=== PATIENT | female | born 1970 | race Caucasian/White ===

== ENCOUNTER 2022-12-23 06:01 | Day surgery (SDC) | payer BC ==
[2022-12-19 10:46] VITALS: BMI 24.3
[2022-12-23] MEDS ORDERED: Sodium Chloride 0.9% 100 ML ONE (06:46)
[2022-12-23] MEDS ORDERED: CEFAZOLIN 2 GM VIAL ONE (06:46)
[2022-12-23] MEDS ORDERED: Heparin 5,000 UNITS/ML VIAL ONE (06:46)
[2022-12-23] MEDS ORDERED: Midazolam HCl 2 mg/2 ml Vial ONE (06:46)
[2022-12-23] MEDS ORDERED: Bupivacaine/Epinephrine 0.25% 30 ML VIAL ONE (06:58)
[2022-12-23] MEDS ORDERED: Vancomycin 1 GM VIAL ONE (06:58)
[2022-12-23] MEDS ORDERED: MINERAL OIL/WHITE PETROLATUM 3.5 GM TUBE ONE (06:58)
[2022-12-23] MEDS ORDERED: EPINEPHrine 1 MG/ML AMP ONE (06:58)
[2022-12-23] MEDS ORDERED: Lidocaine 1% (PF) 30 ML VIAL ONE (06:58)
[2022-12-23] MEDS ORDERED: Gentamicin 80 MG/2 ML VIAL ONE (06:58)
[2022-12-23] MEDS ORDERED: fentaNYL PF 100 MCG/2 ML SYRINGE ONE (07:00)
[2022-12-23] MEDS ORDERED: Dexmedetomidine 200 MCG/2 ML VIAL ONE (07:00)
[2022-12-23] MEDS ORDERED: Propofol 500 MG/50 ML VIAL ONE (07:00)
[2022-12-23] MEDS ORDERED: Famotidine/PF 20 mg/2ml Vial ONE (07:22)
[2022-12-23] MEDS ORDERED: Dexamethasone 20 MG/5 ML VIAL ONE (07:35)
[2022-12-23] MEDS ORDERED: Rocuronium Bromide 10 MG/ML (10ML VIAL) ONE (07:35)
[2022-12-23] MEDS ORDERED: Ondansetron PF 4 MG/2 ML Vial ONE (07:35)
[2022-12-23] MEDS ORDERED: ePHEDrine Sulfate 50 MG/10 ML VIAL ONE (07:35)
[2022-12-23] MEDS ORDERED: Lidocaine 1% PF 5 ML VIAL ONE (07:35)
[2022-12-23] MEDS ORDERED: PROPOFOL 200 MG/20 ML VIAL ONE (07:35)
[2022-12-23] MEDS ORDERED: PHENYLEPHRINE-NS 100 MCG/ML 10 ML SYRINGE ONE (07:35)
[2022-12-23] MEDS ORDERED: Tranexamic Acid 1,000 MG/10 ML VIAL ONE (09:18)
[2022-12-23] MEDS ORDERED: Maxitrol 0.1% Opth Oint 3.5 GM TUBE ONE (09:59)
[2022-12-23] MEDS ORDERED: fentaNYL 50 mcg/mL 1 mL Vial ONE (12:03)
[2022-12-23] MEDS ORDERED: HYDROcodone/Acetaminophen 5/325 mg Tablet ONE (12:42)
[2022-12-23] MEDS ORDERED: Morphine 2 MG/ML VIAL ONE (13:23)
== END 2022-12-23 13:58 | disposition home or self-care (01) ==
LOC: SDC 06:01
PROVIDERS: ATTEND Plastic Surgery
PROC: 080PXZZ Alteration of Left Upper Eyelid, External Approach (ICD-10-PCS; principal; 2022-12-23)
PROC: 080NXZZ Alteration of Right Upper Eyelid, External Approach (ICD-10-PCS; principal; 2022-12-23)
PROC: [UNRECOGNIZED PROCEDURE] (principal; 2022-12-23)
PROC: [UNRECOGNIZED PROCEDURE] (principal; 2022-12-23)
PROC: 0HRV0JZ Replacement of Bilateral Breast with Synthetic Substitute, Open Approach (ICD-10-PCS; principal; 2022-12-23)
DX: Z42.1 Encounter for breast reconstruction following mastectomy (principal); H02.831 Dermatochalasis of right upper eyelid; H02.832 Dermatochalasis of right lower eyelid; H02.834 Dermatochalasis of left upper eyelid; H02.835 Dermatochalasis of left lower eyelid; Z85.3 Personal history of malignant neoplasm of breast; Z79.85 Long-term (current) use of injectable non-insulin antidiabetic drugs
CPT/HCPCS: C1789; J0171; J1100; J1580; J1644; J2001; J2250; J2272; J2405; J2704; J3010; J3370; J3490; S0028

== ENCOUNTER 2024-01-02 09:30 | Day surgery (SDC) | payer BC ==
[2024-01-01 13:56] VITALS: BMI 24.3
[2024-01-02] MEDS ORDERED: Heparin 5,000 UNITS/ML VIAL ONE (10:26)
[2024-01-02] MEDS ORDERED: EPINEPHrine 1 MG/ML VIAL ONE ×2 (10:40→11:56)
[2024-01-02] MEDS ORDERED: Gentamicin 80 MG/2 ML VIAL ONE (10:40)
[2024-01-02] MEDS ORDERED: Lidocaine 1% (PF) 30 ML VIAL ONE (10:41)
[2024-01-02] MEDS ORDERED: Bupivacaine 0.25% HCL 30 ML VIAL ONE (10:41)
[2024-01-02] MEDS ORDERED: Vancomycin 1 GM VIAL ONE (10:41)
[2024-01-02] MEDS ORDERED: fentaNYL PF 100 MCG/2 ML SYRINGE ONE (10:58)
[2024-01-02] MEDS ORDERED: PROPOFOL 20 ML ONE ×2 (10:58→13:04)
[2024-01-02] MEDS ORDERED: Midazolam HCl 2 mg/2 ml Vial ONE (11:00)
[2024-01-02] MEDS ORDERED: CEFAZOLIN 2 GM VIAL ONE (11:21)
[2024-01-02] MEDS ORDERED: Sodium Chloride 0.9% 100 ML ONE (11:21)
[2024-01-02] MEDS ORDERED: PHENYLEPHRINE-NS 100 MCG/ML 10 ML SYRINGE ONE (11:44)
[2024-01-02] MEDS ORDERED: Dexamethasone 20 MG/5 ML VIAL ONE (11:47)
[2024-01-02] MEDS ORDERED: Ondansetron PF 4 MG/2 ML Vial ONE (11:47)
[2024-01-02] MEDS ORDERED: Ketorolac Tromethamine 30 MG (1 mL) VIAL ONE (11:47)
[2024-01-02] MEDS ORDERED: Scopolamine 1 mg/72 hour Patch ONE (11:47)
[2024-01-02] MEDS ORDERED: ePHEDrine Sulfate 50 MG/10 ML VIAL ONE (12:16)
[2024-01-02] MEDS ORDERED: HYDROcodone/Acetaminophen 5/325 mg Tablet ONE (14:54)
== END 2024-01-02 14:40 | disposition home or self-care (01) ==
LOC: SDC 09:30
PROVIDERS: ATTEND Plastic Surgery
PROC: 0HRV0JZ Replacement of Bilateral Breast with Synthetic Substitute, Open Approach (ICD-10-PCS; principal; 2024-01-02)
PROC: 0HPT0JZ Removal of Synthetic Substitute from Right Breast, Open Approach (ICD-10-PCS; principal; 2024-01-02)
PROC: 0HPU0JZ Removal of Synthetic Substitute from Left Breast, Open Approach (ICD-10-PCS; principal; 2024-01-02)
DX: N65.1 Disproportion of reconstructed breast (principal); N64.1 Fat necrosis of breast; N60.32 Fibrosclerosis of left breast; N63.20 Unspecified lump in the left breast, unspecified quadrant; Z90.710 Acquired absence of both cervix and uterus
CPT/HCPCS: 88305; 93005; 93010; J0171; J0665; J1100; J1580; J1644; J1885; J2001; J2250; J2405; J2704; J3370; J3490